=== PATIENT | female | born 1955 | race African-American/Black ===

== ENCOUNTER 2021-01-30 11:07 | Emergency (ER) | payer BC, MEDICAID ==
[~2021-01-30] VITALS: Ht 157.5 cm; Wt 55.0 kg
[2021-01-30] MEDS ORDERED: IBUPROFEN 600MG TABLET PO ONE (13:30)
[2021-01-30 13:44] VITALS: BP 104/57
[2021-01-30] MEDS ORDERED: IBUP-2029 MT (15:13)
== END 2021-01-30 15:33 | disposition home or self-care (01) ==
LOC: ER 11:07
DX: M25.551 Pain in right hip (principal); E78.00 Pure hypercholesterolemia, unspecified; Z88.8 Allergy status to other drugs, medicaments and biological substances; Z98.890 Other specified postprocedural states
CPT/HCPCS: 73502; 99283